=== PATIENT | female | born 1940 | race Caucasian/White ===

== ENCOUNTER 2017-06-07 16:09 | Emergency (ER) | payer OTHER ==
[2017-06-07 16:28] VITALS: BP 138/79
[2017-06-07] MEDS ORDERED: Amoxicillin/Clavulanate TAB* 875 MG PO ONE (16:59)
--- NOTE | 2017-06-07 17:25 | UC ---
Aurora Baldwin Thomas, scribed for Jovanny Fall MD on 06/07/17 at 1635 . Skin Complaint HPI - HPI Summary HPI Summary: The patient is a 77 year old female presenting to Urgent Care status post a cat bite to her left index finger that occurred about two hours ago. 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 The patient says that the bleeding continued for 15 minutes after the bite. She is on Coumadin. The patient is up to date on all vaccinations, and she reports the cat is up to date on all vaccinations as well. The pain is constant. The pain is rated 6/10. The pain is aggravated by touch and is alleviated by nothing. - History of Current Complaint Chief Complaint: UCBiteInjury Time Seen by Provider: 06/07/17 16:19 Stated Complaint: CAT BITE Hx Obtained From: Patient Hx Last Menstrual Period: post menopausal Onset/Duration: Lasting Hours - 2, Still Present Pain Intensity: 6 Pain Scale Used: 0-10 Numeric Location: Other - Left index finger Character: Pain Aggravating Factor(s): Touch Alleviating Factor(s): Nothing Associated Signs & Symptoms: Negative: Fever Related History: Other: - Cat bite (patient is volunteer at [facility]) - Allergy/Home Medications Allergies/Adverse Reactions: Allergies Allergy/AdvReac Type Severity Reaction Status Date / Time Latex Allergy Rash Verified 06/07/17 16:30 dye Allergy See Comment Uncoded 06/07/17 16:30 Home Medications: Home Medications Cholecalciferol [Vitamin D-3] 2,000 unit PO DAILY WITH MEAL 06/07/17 [History Confirmed 06/07/17] Furosemide [Lasix] 20 mg PO DAILY 06/07/17 [History Confirmed 06/07/17] Metoprolol Tartrate [Lopressor] 50 mg PO BID 06/07/17 [History Confirmed ] Multiple Vitamin [Multi Vitamin] 1 tab PO DAILY WITH MEAL 06/07/17 [History Confirmed 06/07/17] Multiple Vitamins W/ Minerals [Preservision Areds 2 + Mu] 1 cap PO DAILY WITH MEAL 06/07/17 [History Confirmed 06/07/17] Potassium Chloride [Klor-Con Sprinkle] 10 meq PO DAILY WITH MEAL 06/07/17 [ History Confirmed 06/07/17] Vitamin B2 2,000 unit PO DAILY WITH MEAL 06/07/17 [History Confirmed 06/07/17] Warfarin TAB(*) [Coumadin TAB(*)] 2 mg PO DAILY 06/07/17 [History Confirmed ] Review of Systems Constitutional: Other - NEGATIVE: fever Skin: Other - Cat bite to left index finger Is Patient Immunocompromised?: No All Other Systems Reviewed And Are Negative: Yes PMH/Surg Hx/FS Hx/Imm Hx Previously Healthy: No - A-Fib; NEGATIVE: DM - Surgical History Surgical History: Yes Surgery Procedure, Year, and Place: Lipoma removal R lower leg. Laser surgery R eye - Family History Known Family History: Positive: Other - Patient denies relevant FHx - Social History Alcohol Use: Occasionally Substance Use Type: None Smoking Status (MU): Former Smoker - Immunization History Most Recent Tetanus Shot: within last 5 years Physical Exam Triage Information Reviewed: Yes Vital Signs: Initial Vital Signs Temp 97.5 F 06/07/17 16:19 Pulse 64 06/07/17 16:19 Resp 18 06/07/17 16:19 BP 138/79 06/07/17 16:19 Pulse Ox 96 06/07/17 16:19 Vital Signs Reviewed: Yes - Additional Comments VITAL SIGNS: Reviewed. GENERAL: Patient is a well-developed and nourished female who is lying comfortable in the stretcher. Patient is not in any acute respiratory distress. HEAD AND FACE: Normocephalic EYES: PERRLA, EOMI x 2. EARS: Hearing grossly intact. MOUTH: Oropharynx within normal limits. NECK: Supple, trachea is midline, no adenopathy, no JVD, no carotid bruit. CHEST: Symmetric, no tenderness at palpation LUNGS: Clear to auscultation bilaterally. No wheezing or crackles. CVS: Regular rate and rhythm, S1 and S2 present, no murmurs or gallops appreciated. ABDOMEN: Soft, non-tender. Bowel sounds are normal. No abdominal abnormal pulsations. EXTREMITIES: Full ROM in all major joints, no edema, no cyanosis or clubbing. NEURO: Alert and oriented x 3. No acute neurological deficits. Speech is normal and follows commands. SKIN: Dry and warm. There are two bite sabillon to the left index finger. Course/Dx - Course Course Of Treatment: The patient is a 77 year old female presenting to Urgent Care status post a cat bite to her left index finger that occurred about two hours ago. 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 The patient says that the bleeding continued for 15 minutes after the bite. She is on Coumadin. The patient is up to date on all vaccinations, and she reports the cat is up to date on all vaccinations as well. There are two bite sabillon to the left index finger. The animal is now quarantined at [facility]. The bite sabillon was irrigated with normal saline. Bacitracin was applied. The patient is diagnosed with animal bite. The patient will be discharged home and instructed to follow up with primary care. The patient is prescribed Augmentin. - Differential Diagnoses - Skin Complaint Differential Diagnoses: Cellulitis, Other - animal bite - Diagnoses Provider Diagnoses: Animal bite Discharge - Discharge Plan Condition: Stable Disposition: HOME Prescriptions: Amoxicillin/Clavulanate TAB* [Augmentin TAB 875*] 875 mg PO BID #20 tab Patient Education Materials: Animal Bite (ED) Referrals: Faviola Lugo MD [Primary Care Provider] - 3 Days Additional Instructions: Follow up with your primary care physician in 3 days. Return to urgent care for any new or worsening symptoms. The documentation as recorded by the Aurora joya Thomas accurately reflects the service I personally performed and the decisions made by , Jovanny Fall MD.
== END 2017-06-07 17:15 | disposition home or self-care (01) ==
LOC: UCEAST 16:09
DX: S61.250A Open bite of right index finger without damage to nail, initial encounter (principal); Z91.040 Latex allergy status; Z91.048 Other nonmedicinal substance allergy status; Z87.891 Personal history of nicotine dependence; W55.01XA Bitten by cat, initial encounter; Y92.9 Unspecified place or not applicable
CPT/HCPCS: 99212; A9270-GY; G0463

== ENCOUNTER 2017-09-18 11:47 | Emergency (ER) | payer MEDICARE, OTHER ==
--- NOTE | 2017-09-18 12:21 | RAD ---
Indication: Fall with headaches patient on Coumadin. CT of the brain was performed without IV contrast. Ventricular structures are midline. No midline shift is noted. The extraction spaces are unremarkable. There is no evidence of intracranial mass or hemorrhage. Periventricular lucency consistent with chronic ischemic White matter change is noted. There is opacification of the right sphenoid sinus. Mastoid air cells and paranasal sinuses are otherwise unremarkable. IMPRESSION: There is no evidence of intracranial mass or hemorrhage noted.
[2017-09-18] MEDS ORDERED: Acetaminophen TAB* 325 MG PO ONE (12:35)
--- NOTE | 2017-09-18 12:37 | RAD ---
INDICATION: Neck pain post fall. Anticoagulated. COMPARISON: No relevant prior exams available on the [facility] [place], [place] PACS for comparison. TECHNIQUE: Multidetector CT images foramen magnum to lung apices without contrast. Multiplanar reformation. REPORT: Negative for facet subluxation at any level. Negative for cervical vertebral body or posterior element fracture. Negative for paravertebral hematoma. Diffuse degenerative spondylosis and facet joint osteoarthritis. Disc space narrowing is severe at C4-C5, C5-C6, and C6-C7. At C3-C4 uncinate process spurring and facet joint osteoarthritis results in mild RIGHT foraminal stenosis. At C4-C5 there is 2 mm degenerative anterolisthesis. Uncinate process spurring and facet joint osteoarthritis results in slight LEFT foraminal stenosis. At C5-C6 uncinate process spurring and facet joint osteoarthritis results in slight LEFT foraminal stenosis. Dorsal disc osteophyte complex results in minimal impression on the ventral margin of the thecal sac. At C6-C7 dorsal disc osteophyte complex results in minimal impression on the ventral margin of the thecal sac. Congenitally generous pedicles mitigate against more significant acquired central canal stenosis. IMPRESSION: 1. No evidence for traumatic cervical spine injury. 2. 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
[2017-09-18 12:45] VITALS: BP 140/71
--- NOTE | 2017-09-20 07:52 | ED ---
Samir Baldwin Angela, scribed for Jovanny Fall MD on 09/18/17 at 1228 . Head Injury - HPI Summary HPI Summary: This pt is a 77 y/o female presenting to [facility] c/o headache since last night s/ p head strike. Pt reports she was stepping out of a car when she walked to the sidewalk, slipped on grass subsequently falling from the height of the curb. She notes head strike on the occipital area. Denies LOC. Last night she had a headache rating it 7 out of 10 in severity. This morning pt woke up with persistent headache, which she currently rates 6/10 in severity. Denies nausea, vomiting. Pt is on daily Coumadin for atrial fibrillation. - History Of Current Complaint Chief Complaint: EDHeadInjury Stated Complaint: FALL/HEADACHE Time Seen by Provider: 09/18/17 11:59 Hx Obtained From: Patient Hx Last Menstrual Period: post menopausal Mechanism Of Injury: Direct Blow, Fall From A Standing Position Onset/Duration: Started Hours Ago, Traumatic, Still Present Onset of Pain: Hours Severity Currently: Moderate Severity Initially: Moderate Pain Intensity: 6 Pain Scale Used: 0-10 Numeric Location of Head Injury: Occipital Character: Aching Aggravating Factor(s): Other: - nothing Alleviating Factor(s): Other: - nothing Associated Signs And Symptoms: Headache, Other: - NEG: nausea, vomiting Anticoagulant Therapy: Coumadin - Allergies/Home Medications Allergies/Adverse Reactions: Allergies Allergy/AdvReac Type Severity Reaction Status Date / Time Iodinated Contrast- Oral and Allergy Hives Verified 09/18/17 12:24 IV Dye latex Allergy Rash Verified 09/18/17 12:23 PMH/Surg Hx/FS Hx/Imm Hx Endocrine/Hematology History: Denies: Hx Diabetes Cardiovascular History: Reports: Hx Atrial Fibrillation, Hx Hypertension - Surgical History Surgery Procedure, Year, and Place: Lipoma removal R lower leg. Laser surgery R eye Infectious Disease History: Unable to Obtain/Confirm Infectious Disease History: Denies: Traveled Outside the [place] in Last 30 Days - Family History Known Family History: Positive: Other - Patient denies relevant FHx - Social History Alcohol Use: Occasionally Substance Use Type: Reports: None Smoking Status (MU): Former Smoker Review of Systems Negative: Fever, Chills Negative: Vomiting, Nausea Genitourinary: Negative Musculoskeletal: Negative Positive: Headache All Other Systems Reviewed And Are Negative: Yes Physical Exam - Summary Physical Exam Summary: VITAL SIGNS: Reviewed. GENERAL: Patient is a well-developed and nourished female who is lying comfortable in the stretcher. Patient is not in any acute respiratory distress. HEAD AND FACE: No signs of trauma. No ecchymosis, hematomas or skull depressions. No sinus tenderness. EYES: PERRLA, EOMI x 2, No injected conjunctiva, no nystagmus. EARS: Hearing grossly intact. Ear canals and tympanic membranes are within normal limits. MOUTH: Oropharynx within normal limits. NECK: Supple, trachea is midline, no adenopathy, no JVD, no carotid bruit, no c- spine tenderness, neck with full ROM. CHEST: Symmetric, no tenderness at palpation LUNGS: Clear to auscultation bilaterally. No wheezing or crackles. CVS: Irregular rate and rhythm, S1 and S2 present, no murmurs or gallops appreciated. ABDOMEN: Soft, non-tender. No signs of distention. No rebound no guarding, and no masses palpated. Bowel sounds are normal. EXTREMITIES: FROM in all major joints, no edema, no cyanosis or clubbing. NEURO: Alert and oriented x 3. No acute neurological deficits. Speech is normal and follows commands. SKIN: Dry and warm GCS: 15 Triage Information Reviewed: Yes Vital Signs On Initial Exam: Initial Vitals Temp Pulse Resp BP Pulse Ox 98.0 F 78 15 141/107 99 09/18/17 12:05 09/18/17 12:05 09/18/17 12:05 09/18/17 12:05 09/18/17 12:05 Vital Signs Reviewed: Yes Diagnostics - Vital Signs Vital Signs Temp Pulse Resp BP Pulse Ox 09/18/17 12:05 98.0 F 78 15 141/107 99 - Laboratory Lab Statement: Any lab studies that have been ordered have been reviewed, and results considered in the medical decision making process. - CT Brain CT CT Interpretation: No Acute Changes - IMPRESSION: There is no evidence for intracranial mass or hemorrhage noted. Dr. Fall has reviewed this radiology report. CT Interpretation Completed By: Radiologist Cervical spine CT CT Interpretation: No Acute Changes - IMPRESSION: 1. No evidence for traumatic cervical spine injury. 2. 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 Dr. Fall has reviewed this radiology report. CT Interpretation Completed By: Radiologist Re-Evaluation - Re-Evaluation First Eval Re-Evaluation Time: 12:38 Comment: I reviewed the brain and neck CT results with the pt. Pt will be discharged home. Head Injury Course/Dx Assessment/Plan: This pt is a 77 y/o female presenting to [facility] c/o headache since last night s/p head strike. Pt reports she was stepping out of a car when she walked to the sidewalk, slipped on grass subsequently falling from the height of the curb. She notes head strike on the occipital area. Denies LOC. Last night she had a headache rating it 7 out of 10 in severity. This morning pt woke up with persistent headache, which she currently rates 6/10 in severity. Denies nausea, vomiting. Pt is on daily Coumadin for atrial fibrillation. Brain CT shows there is no evidence for intracranial mass or hemorrhage noted. Cervical spine CT shows 1. No evidence for traumatic cervical spine injury. 2. 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 In the ED course the pt was given Tylenol for the headache. After this medication, the pts pain improved. Since the head CT and neck CT are both negative, the pt will be discharged home with follow up from her PCP. I discussed all the findings and test results with the patient. All questions were answered to patient satisfaction. There were no further complaints or concerns. She is instructed to return to the ED for any worsening or new symptoms. Pt is hemodynamically stable, alert and oriented x3. - Diagnoses Provider Diagnoses: Headache Discharge - Sign-Out/Discharge Documenting (check all that apply): Discharge - discharge to home - Discharge Plan Condition: Stable Disposition: HOME Patient Education Materials: Acute Headache (ED) Referrals: Faviola Lugo MD [Primary Care Provider] - 3 Days Additional Instructions: Please follow up with your primary care provider. RETURN TO THE ED FOR ANY NEW OR WORSENING SYMPTOMS. The documentation as recorded by the Samir joya Angela accurately reflects the service I personally performed and the decisions made by me, Jovanny Fall MD.
== END 2017-09-18 12:44 | disposition home or self-care (01) ==
LOC: ED 11:47
DX: R51 Headache (principal); Z87.891 Personal history of nicotine dependence; I48.91 Unspecified atrial fibrillation; Z79.01 Long term (current) use of anticoagulants
CPT/HCPCS: 70450; 72125; 99282; A9270-GY

== ENCOUNTER 2019-05-07 14:47 | Emergency (ER) | payer MEDICARE ==
--- NOTE | 2019-05-07 18:07 | ED ---
Palpitations / Dysrhythmia - HPI Summary HPI Summary: Patient is a 79 y/o F presenting to the ED for a chief complaint of dysrhythmia that began on 05/06/19. She called Dr. Yu, her diamond powder technician, on 05/07/19 and told to go to the ED. She states she feels like a dishrag when she is having an episode of dysrhythmia. She also notes mild diffuse chest tightness, bilateral LE edema since 19 y/o, and intermittent SOB that she does not believe is related to her dysthymia. She also reports having influenza in March 2019 for 3 weeks that has since resolved. Patient denies any fever, chills, erythema of eyes, sore throat, cough, abdominal pain, N/V, dysuria, hematuria, myalgia, edema, rash, or dizziness. PMHx is significant for atrial fibrillation. She was previously seen at [facility] for similar symptoms and had a cardioversion. She takes Zoloft and Warfarin 2mg daily, denies missing a dose, and last had her Warfarin levels assessed 2 weeks ago. She also takes admits a history of ablation that was scheduled and completed at [facility] in 2015. - History of Current Complaint Chief Complaint: EDDysrhythmPalp Time Seen by Provider: 05/07/19 17:54 Hx Obtained From: Patient Onset/Duration: Gradual Onset, Still Present Timing: Constant Severity Initially: Moderate Severity Currently: Moderate Character: Irregular Aggravating: Nothing Alleviating: Nothing Associated Signs & Symptoms: Chest Pain - Chest tightness, Shortness of Breath - Intermittent - Allergy/Home Medications Allergies/Adverse Reactions: Allergies Allergy/AdvReac Type Severity Reaction Status Date / Time Iodinated Contrast Media Allergy Hives Verified 09/18/17 12:24 latex Allergy Rash Verified 09/18/17 12:23 PMH/Surg Hx/FS Hx/Imm Hx Previously Healthy: Yes Endocrine/Hematology History: Denies: Hx Diabetes Cardiovascular History: Reports: Hx Atrial Fibrillation, Hx Hypertension Denies: Hx Hypercholesterolemia Sensory History: Denies: Hx Legally Blind, Hx Deafness Opthamlomology History: Denies: Hx Legally Blind EENT History: Denies: Hx Deafness - Surgical History Surgical History: Yes Surgery Procedure, Year, and Place: Lipoma removal R lower leg. Laser surgery R eye Infectious Disease History: No Infectious Disease History: Denies: Traveled Outside the [place] in Last 30 Days - Family History Known Family History: Negative: Cardiac Disease, Hypertension, Diabetes - Social History Occupation: Retired Lives: Alone Alcohol Use: Occasionally Hx Substance Use: No Substance Use Type: Reports: None Hx Tobacco Use: Yes Smoking Status (MU): Former Smoker Review of Systems Negative: Fever, Chills Negative: Erythema Negative: Sore Throat Positive: Chest Pain - Mild diffuse chest tightness Positive: Shortness Of Breath - Intermittent. Negative: Cough Negative: Abdominal Pain, Vomiting, Nausea Negative: dysuria, hematuria Negative: Myalgia, Edema Negative: Rash Neurological: Other - Negative dizziness All Other Systems Reviewed And Are Negative: Yes Physical Exam - Summary Physical Exam Summary: Constitutional: Well-developed, Well-nourished, Alert. (-) Distressed Skin: Warm, Dry HENT: Normocephalic; Atraumatic Eyes: Conjunctiva normal Neck: Musculoskeletal ROM normal neck. (-) JVD, (-) Stridor, (-) Tracheal deviation Cardio: Heart sounds normal; Intact distal pulses; The pedal pulses are 2+ and symmetric. Radial pulses are 2+ and symmetric. (-) Murmur. Rapid, irregular heart rate. Pulmonary/Chest wall: Effort normal. (-) Respiratory distress, (-) Wheezes, (-) Rales Abd: Soft, (-) tenderness, (-) Distension, (-) Guarding, (-) Rebound Musculoskeletal: (-) Edema Lymph: (-) Cervical adenopathy Neuro: Alert, Oriented x3 Psych: Mood and affect Normal Triage Information Reviewed: Yes Vital Signs On Initial Exam: Initial Vitals Temp Pulse Resp BP Pulse Ox 97.7 F 103 16 142/81 98 05/07/19 14:50 05/07/19 14:50 05/07/19 14:50 05/07/19 14:50 05/07/19 14:50 Vital Signs Reviewed: Yes Procedures - Sedation Patient Received Moderate/Deep Sedation with Procedure: No - Additional Procedures Additional Procedures: cardioversion/defib Diagnostics - Vital Signs Vital Signs Temp Pulse Resp BP Pulse Ox 05/07/19 17:27 97.7 F 103 18 163/99 99 05/07/19 14:50 97.7 F 103 16 142/81 98 - Laboratory Result Diagrams: 05/07/19 18:04 05/07/19 18:04 Lab Statement: Any lab studies that have been ordered have been reviewed, and results considered in the medical decision making process. - EKG 14:51 Cardiac Rate: Other Rate - 107 BPM EKG Rhythm: Atrial Fibrillation ST Segment: Normal Ectopy: None Summary of EKG Findings: EKG at 14:51 shows 107 BPM with atrial fibrillation, incomplete LBBB, no STEMI. Reviewed and interpreted by Dr. Rehman. Course/Dx - Course Course Of Treatment: Patient is a 79 y/o F presenting to the ED for a chief complaint of dysrhythmia that began on 05/06/19. She called Dr. Yu, her diamond powder technician, on 05/07/19 and told to go to the ED. She states she feels like a dishrag when she is having an episode of dysrhythmia. She also notes mild diffuse chest tightness, bilateral LE edema since 19 y/o, and intermittent SOB that she does not believe is related to her dysthymia. She also reports having influenza in March 2019 for 3 weeks that has since resolved. Patient denies any fever, chills, erythema of eyes, sore throat, cough, abdominal pain, N/V, dysuria, hematuria, myalgia, edema, rash, or dizziness. PMHx is significant for atrial fibrillation. She was previously seen at [facility] for similar symptoms and had a cardioversion. She takes Zoloft and Warfarin 2mg daily, denies missing a dose, and last had her Warfarin levels assessed 2 weeks ago. She also takes admits a history of ablation that was scheduled and completed at [facility] in 2015. On exam, patient has a rapid, irregular heart rate. In the ED course, patient was given amidate 10 mg IV, Lopressor 2.5 mg IV, betapace 80 mg PO, and Coumadin 2 mg PO. EKG at 14:51 shows 107 BPM with atrial fibrillation, incomplete LBBB, no STEMI. Laboratory abnormal findings: RBC 5.49, Hgb 16.3, Hct 48, INR 2.35, BUN 29, Creatinine 1.01, BUN/Creatinine ratio 28.7, glucose 108, and free T4 1.27. I offered the patient admission, but she elected to have a cardioversion. Patient has been fully anticoagulated for some time and understands the risks including the risk for stroke. At 19:17, Dr. Saldana agreed with the plan. PROCEDUR ENOTE: NAME: CARDI[facility]ERSION. DETAILS: PROCEDURALIST JOHN MOSCOSO. INDICATION: RAPID A FIB. DETAILS: RISKS DISCUSSED w patient. 100 joules applied synchronized, converted to sinus rhythm with PACs. Patient is a sign-out at 19:00 on 05/07/[address] Abbey Rios MD from Dr. Yoan Rehman MD at shift change, pending further workup and disposition. - Diagnoses Provider Diagnoses: Rapid atrial fibrillation - Physician Notifications Discussed Care Of Patient With: Milvia Saldana - At 19:17, Dr. Saldana agreed with the plan. Time Discussed With Above Provider: 19:17 Discharge ED - Sign-Out/Discharge Documenting (check all that apply): Sign-Out Patient Signing out patient TO: Abbey Rios - 19:00 on 05/07/19 - Discharge Plan Condition: Stable Referrals: Faviola Lugo MD [Primary Care Provider] - - Attestation Statements Document Initiated by Scribe: Yes Documenting Scribe: Lily Hoff Provider For Whom Scribe is Documenting (Include Credential): Yoan Rehman MD Scribe Attestation: Lily Baldwin, scribed for Yoan Rehman MD on 05/07/19 at 1950. Status of Scribe Document: Ready
[2019-05-07 18:11] LABS: ABS Basophils 0.1 10^3/ul (0-0.2); ABS Eosinophils 0.1 10^3/ul (0-0.6); ABS Lymphocytes 2.5 10^3/ul (1.0-4.8); ABS Monocytes 0.6 10^3/ul (0-0.8); ABS Neutrophils 5.3 10^3/ul (1.5-7.7); Eosinophil % 1.1 %; Hematocrit 48 % (35-47); Hemoglobin 16.3 g/dL (12.0-16.0); Lymphocyte % 28.9 %; Mean Corpuscular HGB Conc 34 g/dL (31-36); Mean Corpuscular Hemoglobin 30 pg (27-31); Mean Corpuscular Volume 87 fL (80-97); Mean Platelet Volume 8.7 fL (7.4-10.4); Nucleated Red Blood Cells % 0.1; Platelet Count 205 10^3/uL (150-450); Red Blood Count 5.49 10^6 /uL (3.70-4.87); Red Cell Distribution Width 14 % (10-15); White Blood Count 8.6 10^3/uL (3.5-10.8)
[2019-05-07 18:16] LABS: INR 2.35 (0.82-1.09)
[2019-05-07 18:28] LABS: ALT 16 U/L (7-52); AST 20 U/L (13-39); Albumin 3.8 g/dL (3.2-5.2); Albumin/Globulin Ratio 1.2 (1-3); Alkaline Phosphatase 58 U/L (34-104); Anion Gap 8 mmol/L (2-11); BUN/Creatinine Ratio 27.4 (8-20); Blood Urea Nitrogen 26 mg/dL (6-24); CO2 Carbon Dioxide 26 mmol/L (22-32); Calcium 9.9 mg/dL (8.6-10.3); Chloride 106 mmol/L (101-111); EGFR African American 68.8 (>60); EGFR Non-African American 56.9 (>60); Globulin 3.1 g/dL (2-4); Glucose 108 mg/dL (70-100); Magnesium 1.9 mg/dL (1.9-2.7); Potassium 4.2 mmol/L (3.5-5.0); Sodium 140 mmol/L (135-145); Total Protein 6.9 g/dL (6.4-8.9)
[2019-05-07 18:33] LABS: Troponin I 0.03 ng/mL (<0.03)
--- NOTE | 2019-05-07 19:09 | ED ---
Progress - Progress Note Progress Note: This pt is a sign out to Dr. Rios from Dr. Rehman at shift change 05/07/191899 pending moderate sedation and cardioversion with no negative effects. - Results/Orders Results/Orders: EKG at 2035 reveals a questionable rhythm with rate of 84 BPM and a LBBB. No STEMI. This EKG was reviewed and interpreted by Dr. Rios at 203705/07/19. EKG at 2051 reveals atrial flutter with predominant 3:1 AV block and a LBBB. No STEMI. This EKG [place] [address]305/07/19. EKG at 2156 reveals normal sinus rhythm with rate of 61 BPM, no acute changes, no ischemic changes. This EKG was reviewed and interpreted by Dr. Rios. At 215805/07/19. EKG at 2237reveals normal sinus rhythm with rate of 77 BPM, no acute changes, no ischemic changes. This EKG was reviewed and interpreted by Dr. Rios at 223905/07/19. Re-Evaluation - Re-Evaluation First Eval Re-Evaluation Time: 20:57 Change: Worse Comment: Pt's EKG at 2051 shows atrial flutter. Pt was informed of the EKG and the current plan of care. She will be given cardizem. Second Eval Re-Evaluation Time: 22:25 Change: Improved Comment: Pt has returned to a normal sinus rhythm and will be discharged home. I have discussed results with the patient and atrial fibrillation is resolved. Discussed symptoms that warrant immediate return to ED Course/Dx - Course Course Of Treatment: This pt is a sign out to Dr. Rios from Dr. Rehman at shift change 05/07/191899 pending moderate sedation and cardioversion with no negative effects and disposition. Etomidate 10 mg IV. Sotalol 80. Lopressor 2.5. Coumadin 2. cardizem - Diagnoses Provider Diagnoses: Afib - Provider Notifications Discussed Care Of Patient With: Nicky Bridges Time Discussed With Above Provider: 22:00 Instructed by Provider To: Other - Dr. Bridges, hospitalist, was informed that the pt had returned to a NSR. Pt will be discharged home. Discharge ED - Sign-Out/Discharge Documenting (check all that apply): Patient Departure - discharge - Discharge Plan Condition: Stable Disposition: HOME Patient Education Materials: A-fib (Atrial Fibrillation) (ED), Moderate Sedation (ED) Referrals: Faviola Lugo MD [Primary Care Provider] - 2 Days Additional Instructions: PLEASE RETURN TO THE EMERGENCY DEPARTMENT FOR ANY NEW OR WORSENING SYMPTOMS. FOLLOW UP WITH YOUR PRIMARY CARE PROVIDER IN 1-3 DAYS. - Billing Disposition and Condition Condition: STABLE Disposition: Home - Attestation Statements Document Initiated by Scribe: Yes Documenting Scribe: Israel Chou Provider For Whom Scribe is Documenting (Include Credential): Abbey Rios MD Scribe Attestation: I[place], scribed for Abbey Rios MD on 05/08/19 at 0428. Scribe Documentation Reviewed: Yes Provider Attestation: The documentation as recorded by the Israel joya accurately reflects the service I personally performed and the decisions made by me, Abbey Rios MD Status of Scribe Document: Viewed Procedures - Sedation Patient Received Moderate/Deep Sedation with Procedure: Yes - Etomidate Are You The Provider Who Administered The Sedation: [place] of Provider Whom Sedated Patient: Abbey Rios - Procedural Sedation/Analgesia Sedation Course: RT Present, Emergency Airway Equipment Available, Informed Consent Obtained, Time Out Completed - 1918 Adverse Reactions Experienced by Patient: None Mallampati Classification: Class II ASA Classification: Class II: Mild Systemic Disease Pre-Procedural Heart: S1 and S2 Pre-Procedural Lungs: Clear Auscultation Comment/Plan of Care: Pt will receive etomidate 10 mg IV to prep for a cardioversion. Cardioversion will be completed with defibrilator paddles to return her heart to a normal pulse and rhythm. Cleared for Moderate Sedation: Yes Pre-Procedural Diagnosis: Symptomatic rapid AFIB Post-Procedural Diagnosis: Cardioverted Estimated Blood Loss: None Specimen(s): None Findings: None Implants/Tubes/Drains Placed: None
[2019-05-07 19:10] LABS: TSH (Thyroid Stimulating Horm) 2.44 mcIU/mL (0.34-5.60)
[2019-05-07 19:12] LABS: Free T4 1.05 ng/dL (0.61-1.12)
[2019-05-07] MEDS: Etomidate* 2 MG/ML 10 ML VIAL IV ONE ×2 (19:18→19:49)
[2019-05-07] MEDS: Warfarin TAB(*) 2 MG PO ONE (19:54)
[2019-05-07] MEDS: Sotalol TAB* 80 MG PO ONE ×2 (19:54→20:09)
[2019-05-07] MEDS: Metoprolol Tartrate IV* 1 MG/ML 5 ML VIAL IV ONE (19:54)
[2019-05-07] MEDS: Diltiazem IV push/loading dose 5 MG/ML 5 ML vial (25 mg) IV SLOW PU ONE (21:18)
[2019-05-07 21:34] LABS: Troponin I 0.03 ng/mL (<0.03)
[2019-05-07 22:48] VITALS: BP 130/75
[2019-05-07] MEDS: Diltiazem IV BAG* D5W Premix 125 MG/125 ML BAG IV ONE (22:51)
[2019-05-08] MEDS ORDERED: SOTALOL 120 MG PO SCH (09:00)
[2019-05-08] MEDS ORDERED: Warfarin TAB(*) 2 MG PO SCH (09:00)
== END 2019-05-07 22:40 | disposition home or self-care (01) ==
LOC: ED 14:47
DX: I48.91 Unspecified atrial fibrillation (principal); I10 Essential (primary) hypertension; Z87.891 Personal history of nicotine dependence; Z79.01 Long term (current) use of anticoagulants; Z79.899 Other long term (current) drug therapy; Z91.041 Radiographic dye allergy status; Z91.040 Latex allergy status
CPT/HCPCS: 36415; 80053; 83735; 84439; 84443; 84484; 85025; 85610; 93005; 96374; 96375; 99284; A9270-GY; J3490

== ENCOUNTER 2023-09-22 15:32 | Inpatient (IN) ==
[2023-09-22 16:01] LABS: ABS Basophils 0.1 10^3/uL (0.0-0.1); ABS Eosinophils 0.1 10^3/uL (0.0-0.5); ABS Lymphocytes 1.2 10^3/uL (1.0-4.8); ABS Monocytes 0.6 10^3/uL (0.0-0.9); ABS Neutrophils 5.7 10^3/uL (1.5-7.6); ABS Nucleated RBC 0.01 10^3/ul; Eosinophil % 1.3 %; Hematocrit 40.5 % (35-45); Hemoglobin 13.4 g/dL (11.5-14.3); Lymphocyte % 15.3 %; Mean Corpuscular Hemoglobin 29.4 pg (27-33); Mean Corpuscular Volume 89.2 fL (80-97); Mean Platelet Volume 8.7 fL (7.5-11.2); Nucleated Red Blood Cells % 0.1 %/100WBC (0.0-0.8); Platelet Count 192 10^3/uL (150-450); Red Blood Count 4.55 10^6/uL (3.63-4.92); Red Cell Distribution Width 14.1 % (12-17); White Blood Count 7.6 10^3/uL (3.8-11.8)
[2023-09-22 16:26] LABS: INR 1.84 (0.83-1.13)
[2023-09-22 16:47] LABS: Albumin 4.1 g/dL (3.2-5.2); Albumin/Globulin Ratio 1.8 (1-3); Calcium 9.4 mg/dL (8.6-10.3); Creatinine, Serum 1.01 mg/dL (0.51-0.95); Globulin 2.3 g/dL (2-4); Potassium 3.7 mmol/L (3.5-5.0); Total Protein 6.4 g/dL (6.4-8.9); eGFR CKD-EPI 55.6 (>60)
[2023-09-22 17:30] LABS: High Sensitivity Troponin 1 Hr 282 pg/mL (<15)
[2023-09-22] MEDS: KCL 20 MEQ/100 ML IVPREMIX 20 MEQ/100 ML BAG IV ONE (17:34)
[2023-09-22] MEDS: Metoprolol Tartrate 5 mg VIAL 5 ml VIAL (1 mg/ml) IV ONE ×4 (17:34→19:23)
[2023-09-22 18:04] LABS: Magnesium 1.8 mg/dL (1.9-2.7)
[2023-09-22] MEDS: Magnesium Sulfate 2 gm BAG 2 GM/50 ML BAG IVPB ONE (19:29)
[2023-09-22] MEDS: Digoxin IV 0.5 MG/2 ML AMP (0.25 MG/ML) IV SLOW PU ONE (20:09)
[2023-09-22] MEDS: Esmolol 10 MG/ML IVPREMIX 2,500 MG/250 ML BAG IV SCH (20:37)
[2023-09-22 20:39] LABS: ABS Basophils 0.1 10^3/uL (0.0-0.1); ABS Eosinophils 0.1 10^3/uL (0.0-0.5); ABS Lymphocytes 2.1 10^3/uL (1.0-4.8); ABS Monocytes 0.8 10^3/uL (0.0-0.9); ABS Neutrophils 6.5 10^3/uL (1.5-7.6); ABS Nucleated RBC 0.01 10^3/ul; Eosinophil % 1.3 %; Hematocrit 45.1 % (35-45); Hemoglobin 14.9 g/dL (11.5-14.3); Lymphocyte % 22.1 %; Mean Corpuscular Hemoglobin 29.7 pg (27-33); Mean Corpuscular Hgb Conc 33.1 g/dL (31-36); Mean Corpuscular Volume 89.5 fL (80-97); Mean Platelet Volume 8.8 fL (7.5-11.2); Nucleated Red Blood Cells % 0.1 %/100WBC (0.0-0.8); Platelet Count 201 10^3/uL (150-450); Red Blood Count 5.04 10^6/uL (3.63-4.92); Red Cell Distribution Width 13.8 % (12-17); White Blood Count 9.6 10^3/uL (3.8-11.8)
[2023-09-22] MEDS: Heparin 5000 UNITS/ML 1 mL VIAL IV SCH (20:43)
[2023-09-22] MEDS: Heparin DRIP 25,000 UNITS BAG 25,000 UNITS/250 ML BAG IV SCH (20:43)
[2023-09-22 20:51] LABS: Activated Partial Thrombo Time 32.7 seconds (26.0-38.0)
[2023-09-22 21:33] LABS: Creatinine, Serum 0.94 mg/dL (0.51-0.95); eGFR CKD-EPI 60.6 (>60)
[2023-09-22] MEDS ORDERED: Al Hydrox/Mg Hydrox/Simet LIQ 30 ML UDC PO PRN (21:45)
[2023-09-23] MEDS: Digoxin IV 0.5 MG/2 ML AMP (0.25 MG/ML) IV SLOW PU ONE (02:52)
[2023-09-23 05:05] LABS: ABS Eosinophils 0.1 10^3/uL (0.0-0.5); ABS Lymphocytes 1.3 10^3/uL (1.0-4.8); ABS Monocytes 0.7 10^3/uL (0.0-0.9); ABS Neutrophils 4.3 10^3/uL (1.5-7.6); ABS Nucleated RBC 0.02 10^3/ul; Eosinophil % 1.3 %; Hematocrit 36.2 % (35-45); Lymphocyte % 19.9 %; Mean Corpuscular Hemoglobin 29.7 pg (27-33); Mean Corpuscular Hgb Conc 33.2 g/dL (31-36); Mean Corpuscular Volume 89.4 fL (80-97); Mean Platelet Volume 8.5 fL (7.5-11.2); Nucleated Red Blood Cells % 0.3 %/100WBC (0.0-0.8); Platelet Count 167 10^3/uL (150-450); Red Blood Count 4.05 10^6/uL (3.63-4.92); Red Cell Distribution Width 13.8 % (12-17); White Blood Count 6.4 10^3/uL (3.8-11.8)
[2023-09-23 05:13] LABS: INR 1.89 (0.83-1.13)
[2023-09-23 06:15] LABS: Calcium 8.4 mg/dL (8.6-10.3); Creatinine, Serum 1.01 mg/dL (0.51-0.95); Potassium 3.9 mmol/L (3.5-5.0); eGFR CKD-EPI 55.6 (>60)
[2023-09-23 16:03] LABS: Albumin 3.4 g/dL (3.2-5.2); Albumin/Globulin Ratio 1.9 (1-3); Direct Bilirubin 0.2 mg/dL (0.03-0.18); Globulin 1.8 g/dL (2-4); Indirect Bilirubin 0.7 mg/dL (0.3-1.0); Total Bilirubin 0.9 mg/dL (0.2-1.0); Total Protein 5.2 g/dL (6.4-8.9)
[2023-09-23] MEDS: Enoxaparin 80 MG/0.8 ML SYR SUBCUT SCH (20:37)
[2023-09-24 04:21] LABS: ABS Eosinophils 0.2 10^3/uL (0.0-0.5); ABS Lymphocytes 1.2 10^3/uL (1.0-4.8); ABS Monocytes 0.8 10^3/uL (0.0-0.9); ABS Neutrophils 3.9 10^3/uL (1.5-7.6); Eosinophil % 2.7 %; Hematocrit 36.6 % (35-45); Hemoglobin 12.1 g/dL (11.5-14.3); Lymphocyte % 19.8 %; Mean Corpuscular Hemoglobin 29.3 pg (27-33); Mean Corpuscular Hgb Conc 33.1 g/dL (31-36); Mean Corpuscular Volume 88.6 fL (80-97); Mean Platelet Volume 8.5 fL (7.5-11.2); Platelet Count 166 10^3/uL (150-450); Red Blood Count 4.13 10^6/uL (3.63-4.92); Red Cell Distribution Width 13.4 % (12-17); White Blood Count 6.2 10^3/uL (3.8-11.8)
[2023-09-24 04:49] LABS: Albumin 3.5 g/dL (3.2-5.2); Albumin/Globulin Ratio 1.8 (1-3); Calcium 8.7 mg/dL (8.6-10.3); Globulin 1.9 g/dL (2-4); Magnesium 1.9 mg/dL (1.9-2.7); Phosphorus 3.7 mg/dL (2.5-5.0); Total Bilirubin 0.7 mg/dL (0.2-1.0); Total Protein 5.4 g/dL (6.4-8.9); eGFR CKD-EPI 56.2 (>60)
[2023-09-24] MEDS: Magnesium Sulfate 2 gm BAG 2 GM/50 ML BAG IV ONE (10:45)
[2023-09-24] MEDS ORDERED: Warfarin per PHARMACY **NOTE FOLLOW UP SCH (19:00)
[2023-09-25 06:35] LABS: ABS Eosinophils 0.2 10^3/uL (0.0-0.5); ABS Lymphocytes 1.6 10^3/uL (1.0-4.8); ABS Monocytes 0.9 10^3/uL (0.0-0.9); ABS Neutrophils 4.3 10^3/uL (1.5-7.6); ABS Nucleated RBC 0.01 10^3/ul; Hematocrit 39.7 % (35-45); Hemoglobin 13.2 g/dL (11.5-14.3); Lymphocyte % 22.9 %; Mean Corpuscular Hemoglobin 29.6 pg (27-33); Mean Corpuscular Hgb Conc 33.2 g/dL (31-36); Mean Corpuscular Volume 89.1 fL (80-97); Mean Platelet Volume 8.8 fL (7.5-11.2); Nucleated Red Blood Cells % 0.1 %/100WBC (0.0-0.8); Platelet Count 175 10^3/uL (150-450); Red Blood Count 4.45 10^6/uL (3.63-4.92); Red Cell Distribution Width 13.6 % (12-17)
[2023-09-25 06:43] LABS: INR 1.41 (0.83-1.13)
[2023-09-25 07:06] LABS: ALT 48 U/L (7-52); AST 40 U/L (13-39); Albumin 3.5 g/dL (3.2-5.2); Albumin/Globulin Ratio 1.8 (1-3); Alkaline Phosphatase 57 U/L (35-149); Anion Gap 8 mmol/L (2-16); Blood Urea Nitrogen 22 mg/dL (6-24); CO2 Carbon Dioxide 32 mmol/L (22-32); Calcium 8.9 mg/dL (8.6-10.3); Chloride 101 mmol/L (101-111); Creatinine, Serum 0.88 mg/dL (0.51-0.95); Globulin 1.9 g/dL (2-4); Glucose 89 mg/dL (70-100); Phosphorus 3.9 mg/dL (2.5-5.0); Potassium 4.2 mmol/L (3.5-5.0); Sodium 141 mmol/L (135-145); Total Bilirubin 0.8 mg/dL (0.2-1.0); Total Protein 5.4 g/dL (6.4-8.9); eGFR CKD-EPI 65.6 (>60)
[2023-09-25 08:38] LABS: Folate > 20.00 ng/mL (5.90-24.80)
[2023-09-25 08:39] LABS: Vitamin B12 382 pg/mL (180-914)
[2023-09-25] MEDS: Digoxin IV 0.5 MG/2 ML AMP (0.25 MG/ML) IV SLOW PU ONE (10:17)
[2023-09-25] MEDS: Warfarin DAILY REMINDER **NOTE FOLLOW UP SCH (18:03)
[2023-09-25] MEDS: Benzocaine/Menthol LOZ PO PRN (20:20)
[2023-09-26 07:43] LABS: INR 1.35 (0.83-1.13)
[2023-09-27 07:36] LABS: INR 1.62 (0.83-1.13)
[2023-09-27] MEDS: Albuterol/Ipratropium NEB.SOL (2.5/0.5 MG) 3 ML NEB.SOLN INH PRN (17:31)
[2023-09-28 06:21] LABS: ABS Basophils 0.1 10^3/uL (0.0-0.1); ABS Eosinophils 0.1 10^3/uL (0.0-0.5); ABS Lymphocytes 1.8 10^3/uL (1.0-4.8); ABS Monocytes 0.9 10^3/uL (0.0-0.9); ABS Neutrophils 5.1 10^3/uL (1.5-7.6); Eosinophil % 1.6 %; Hematocrit 39.5 % (35-45); Hemoglobin 13.2 g/dL (11.5-14.3); Lymphocyte % 22.2 %; Mean Corpuscular Hemoglobin 29.5 pg (27-33); Mean Corpuscular Hgb Conc 33.3 g/dL (31-36); Mean Corpuscular Volume 88.6 fL (80-97); Mean Platelet Volume 8.9 fL (7.5-11.2); Platelet Count 185 10^3/uL (150-450); Red Blood Count 4.46 10^6/uL (3.63-4.92); Red Cell Distribution Width 13.5 % (12-17)
[2023-09-28 06:30] LABS: INR 1.73 (0.83-1.13)
[2023-09-28 07:03] LABS: Albumin 3.8 g/dL (3.2-5.2); Albumin/Globulin Ratio 1.8 (1-3); Calcium 9.4 mg/dL (8.6-10.3); Creatinine, Serum 0.89 mg/dL (0.51-0.95); Globulin 2.1 g/dL (2-4); Potassium 4.6 mmol/L (3.5-5.0); Total Bilirubin 0.8 mg/dL (0.2-1.0); Total Protein 5.9 g/dL (6.4-8.9); eGFR CKD-EPI 64.7 (>60)
[2023-09-29 05:34] VITALS: BP 141/77
[2023-09-29] MEDS: Levalbuterol 1.25MG/0.5ML NEB.SOL INH ONE (06:23)
[2023-09-29 07:31] LABS: INR 2.17 (0.83-1.13)
[2023-09-29] MEDS: Nystatin TOP POWDER 15 GM BTL TOPICAL SCH (10:58)
== END 2023-09-29 12:55 | disposition home or self-care (01) | DRG 280 ==
LOC: ED 15:32 → SUATTDRO 21:45 → EDHOLD 21:45 → ICU 22:31 → MEDTELE 09-24 23:34
PROVIDERS: ADMIT Internal Medicine; ATTEND Internal Medicine Hematology & Oncology

== ENCOUNTER 2023-11-12 10:32 | Observation (INO) ==
[2023-11-12 11:48] LABS: ABS Basophils 0.1 10^3/uL (0.0-0.1); ABS Eosinophils 0.2 10^3/uL (0.0-0.5); ABS Lymphocytes 1.3 10^3/uL (1.0-4.8); ABS Monocytes 0.8 10^3/uL (0.0-0.9); ABS Neutrophils 5.3 10^3/uL (1.5-7.6); ABS Nucleated RBC 0.01 10^3/ul; Eosinophil % 2.1 %; Hematocrit 43.4 % (35-45); Hemoglobin 14.6 g/dL (11.5-14.3); Lymphocyte % 16.6 %; Mean Corpuscular Hemoglobin 28.7 pg (27-33); Mean Corpuscular Hgb Conc 33.6 g/dL (31-36); Mean Corpuscular Volume 85.4 fL (80-97); Mean Platelet Volume 8.6 fL (7.5-11.2); Nucleated Red Blood Cells % 0.2 %/100WBC (0.0-0.8); Platelet Count 186 10^3/uL (150-450); Red Blood Count 5.08 10^6/uL (3.63-4.92); Red Cell Distribution Width 14.4 % (12-17); White Blood Count 7.6 10^3/uL (3.8-11.8)
[2023-11-12 12:19] LABS: INR 2.56 (0.83-1.13)
[2023-11-12 12:26] LABS: Albumin 3.9 g/dL (3.2-5.2); Albumin/Globulin Ratio 1.6 (1-3); Calcium 8.9 mg/dL (8.6-10.3); Creatinine, Serum 1.07 mg/dL (0.51-0.95); Globulin 2.5 g/dL (2-4); Magnesium 1.9 mg/dL (1.9-2.7); Potassium 3.9 mmol/L (3.5-5.0); Total Protein 6.4 g/dL (6.4-8.9); eGFR CKD-EPI 51.9 (>60)
[2023-11-12] MEDS: Metoprolol Tartrate 5 mg VIAL 5 ml VIAL (1 mg/ml) IV ONE (15:53)
[2023-11-12] MEDS: Benzocaine/Menthol LOZ PO PRN (16:41)
[2023-11-12 16:57] LABS: Ferritin 47.6 ng/mL (11-307)
[2023-11-12] MEDS: Potassium Chlor 20 meq TAB.ER PO ONE (18:44)
[2023-11-12] MEDS: Metoprolol Tartrate 5 mg VIAL 5 ml VIAL (1 mg/ml) IV PRN (20:21)
[2023-11-13 05:01] LABS: Hematocrit 43.1 % (35-45); Hemoglobin 14.3 g/dL (11.5-14.3); Mean Corpuscular Hemoglobin 28.8 pg (27-33); Mean Corpuscular Hgb Conc 33.2 g/dL (31-36); Mean Corpuscular Volume 86.7 fL (80-97); Mean Platelet Volume 8.8 fL (7.5-11.2); Platelet Count 172 10^3/uL (150-450); Red Blood Count 4.97 10^6/uL (3.63-4.92); Red Cell Distribution Width 14.8 % (12-17); White Blood Count 9.2 10^3/uL (3.8-11.8)
[2023-11-13 05:25] LABS: Calcium 9.2 mg/dL (8.6-10.3); Creatinine, Serum 1.07 mg/dL (0.51-0.95); Potassium 4.6 mmol/L (3.5-5.0); eGFR CKD-EPI 51.9 (>60)
[2023-11-13 08:14] LABS: INR 2.5 (0.83-1.13)
[2023-11-13] MEDS ORDERED: Naloxone 0.4 mg VIAL 0.4 mg/ml 1 ml VIAL ONE (09:37)
[2023-11-13] MEDS ORDERED: Flumazenil 0.5 mg/5 ml 0.1 MG/ML 5 ml VIAL ONE (09:37)
[2023-11-13] MEDS ORDERED: Midazolam 5 mg/5 ml VIAL 1 mg/ml 5 ml VIAL (5 mg) ONE (09:37)
[2023-11-13] MEDS ORDERED: fentaNYL 100 mcg/2 ml 50 MCG/ML VIAL ONE (09:37)
[2023-11-13] MEDS: fentaNYL 100 mcg/2 ml 50 MCG/ML VIAL IV SLOW PU ONE (14:18)
[2023-11-13] MEDS: Midazolam 10 mg/10 ml VIAL 1 mg/ml 10 ml VIAL (10 mg) IV SLOW PU ONE (14:18)
[2023-11-13 18:45] LABS: INR 2.63 (0.83-1.13)
[2023-11-13] MEDS: Warfarin DAILY REMINDER **NOTE FOLLOW UP SCH (21:08)
[2023-11-14 06:17] LABS: Calcium 8.8 mg/dL (8.6-10.3); Creatinine, Serum 0.9 mg/dL (0.51-0.95); Magnesium 1.9 mg/dL (1.9-2.7); eGFR CKD-EPI 63.8 (>60)
[2023-11-14] MEDS: Magnesium Sulfate 2 gm BAG 2 GM/50 ML BAG IVPB ONE (08:38)
[2023-11-14 14:54] VITALS: BP 130/86
== END 2023-11-14 17:55 | disposition home health service (06) ==
LOC: EDHOLD 10:32 → ED 10:32 → MEDTELE 16:08
PROVIDERS: ADMIT Hospitalist; ATTEND Hospitalist